=== PATIENT | female | born 1940 | race Caucasian/White ===

== ENCOUNTER 2016-08-27 18:26 | Emergency (ER) | payer MEDICARE ==
[~2016-08-27 18:26] MED LIST: AMIO200T42 PO; BREO INH; CALCIUM PEG; CHOL100011 PO; FISH OIL PO; FURO-93 PO; LEVO75TA5 PO; LEVO88TA2 PO; LOSA25TA5 PO; OMEP40CA6 PO; POTA20PA PO; RIVA20TA PO; SIMV20TA PO; SPIR25TA PO; SUCR1ORA2 PO; SUCR1TAB PO
[2016-08-27] MEDS ORDERED: MAALOX/HYOSCYAMINE/LIDOCAINE 45 ML BOTTLE PO ONE (19:00)
[2016-08-27] MEDS ORDERED: SODIUM CHLORIDE FLUSH 10ML SYR IVF ONE (19:00)
[2016-08-27 19:21] LABS: HEMOGLOBIN 15.1 g/dL (11.7-16.4)
[2016-08-27] MEDS ORDERED: MAALOX/HYOSCYAMINE/LIDOCAINE 45 ML BOTTLE ONE (19:22)
[2016-08-27 19:33] LABS: ASPARTATE AMINO TRANSFERASE 27 U/L (15-37); BLOOD UREA NITROGEN 14 mg/dL (7-18)
[2016-08-27 19:39] LABS: IS PT STATUS REG ER OR PRE ER? YES
[2016-08-27 21:40] VITALS: BP 138/61
== END 2016-08-27 21:46 | disposition home or self-care (01) ==
LOC: ED 21:30
DX: K21.9 Gastro-esophageal reflux disease without esophagitis (principal)
CPT/HCPCS: 36415; 71010; 80053; 83690; 84484; 85025; 93005

== ENCOUNTER → 2017-01-20 | Outpatient (CLI) | payer MEDICARE | END | disposition home or self-care (01) | LOC: CFH 12:08 | PROVIDERS: ATTEND Internal Medicine | DX: Z12.31 Encounter for screening mammogram for malignant neoplasm of breast (principal) | CPT/HCPCS: G0202 ==

== ENCOUNTER → 2017-07-20 | Outpatient (CLI) | payer MEDICARE, MEDICAID ==
[~2017-07-20] MED LIST changes: +ACET325T14 PO; +ASPI-621 PO; +MELA5TAB19 PO; +OMEG1CAP2 PO; +PRAS10TA4 PO; -SUCR1ORA2 PO; +SUCR1ORA5 PO; +SUCR1TAB33 PO; +calcium PO
== END | disposition home or self-care (01) ==
LOC: CFH 12:05
PROVIDERS: ATTEND Nurse Practitioner Primary Care
DX: M51.36 Other intervertebral disc degeneration, lumbar region (principal); M48.56XA Collapsed vertebra, not elsewhere classified, lumbar region, initial encounter for fracture
CPT/HCPCS: 72100

== ENCOUNTER → 2018-01-20 | Outpatient (CLI) | payer MEDICARE, MEDICAID | END | disposition home or self-care (01) | LOC: CFH 10:43 | PROVIDERS: ATTEND Nurse Practitioner Primary Care | DX: Z12.31 Encounter for screening mammogram for malignant neoplasm of breast (principal); M48.56XA Collapsed vertebra, not elsewhere classified, lumbar region, initial encounter for fracture; M85.88 Other specified disorders of bone density and structure, other site; E78.2 Mixed hyperlipidemia; J44.9 Chronic obstructive pulmonary disease, unspecified; K21.9 Gastro-esophageal reflux disease without esophagitis; I10 Essential (primary) hypertension | CPT/HCPCS: 72100; 77063; 77067 ==

== ENCOUNTER 2018-08-12 06:25 | Emergency (ER) | payer MEDICARE, MEDICAID ==
[~2018-08-12] VITALS: Ht 162.6 cm; Wt 83.0 kg
[~2018-08-12 06:25] MED LIST changes: +APIX5TAB PO; -ASPI-621 PO; +ASPI81TA45 PO; +LOSA25TA25 PO; -LOSA25TA5 PO; +METO-93 PO; -POTA20PA PO; +POTA20PA31 PO
[2018-08-12] MEDS ORDERED: MAALOX/HYOSCYAMINE/LIDOCAINE 45 ML BTL PO ONE (07:00)
--- NOTE | 2018-08-12 07:03 | NUR ---
PT IN HOSPITAL GOWN. PT PLACED ON CARDIAC AND VITALS MONITORS. LAB IN DRAWNING BLOOD AT THIS TIME. BEDSIDE REPORT GIVEN TO SULMA.
[2018-08-12 07:17] LABS: BASOPHILS # (AUTO) 0.02 x10^3/uL (0-0.1); BASOPHILS % (AUTO) 0 % (0-1); EOSINOPHILS # (AUTO) 0.01 x10^3/uL (0-0.4); EOSINOPHILS % (AUTO) 0 % (1-7); LYMPHOCYTES % (AUTO) 13 % (22-44); MD NO; MEAN CORPUSCULAR HEMOGLOBIN 32.4 pg (27.0-34.8); MEAN CORPUSCULAR HGB CONC 33.3 g/dL (32.4-35.8); MEAN CORPUSCULAR VOLUME 97.4 fL (80-100); MEAN PLATELET VOLUME 8.6 fL (7.4-10.4); MONOCYTES # (AUTO) 0.44 x10^3/uL (0.2-0.8); MONOCYTES % (AUTO) 8 % (2-9); NEUTROPHILS # (AUTO) 4.13 x10^3/uL (1.8-6.8); NEUTROPHILS % (AUTO) 78 % (42-75); PLATELET COUNT 302 x10^3/uL (130-400); RED BLOOD COUNT 3.93 x10^6/uL (3.82-5.3); RED CELL DISTRIBUTION WIDTH 13.8 % (9.6-15.2)
[2018-08-12] MEDS ORDERED: MAALOX/HYOSCYAMINE/LIDOCAINE 45 ML BTL ONE (07:21)
[2018-08-12 07:27] LABS: ALBUMIN 2.9 g/dL (3.4-5.0); ANION GAP 6 mmol/L (5-15); CALCIUM 8.4 mg/dL (8.5-10.1); CHLORIDE 109 mmol/L (98-107)
[2018-08-12 07:31] LABS: TROPONIN I < 0.015 ng/mL (0.000-0.045)
--- NOTE | 2018-08-12 07:56 | NUR ---
PT STATED THAT THE GI COCKTAIL MAY OF HELPED SLIGHTLY BUT SHE WASN'T FORSURE. STILL HAS BURNING.
[2018-08-12 08:13] VITALS: BP 105/32
== END 2018-08-12 08:35 | disposition home or self-care (01) ==
LOC: ED 08:04
DX: R07.2 Precordial pain (principal); K21.9 Gastro-esophageal reflux disease without esophagitis; J44.9 Chronic obstructive pulmonary disease, unspecified; E78.5 Hyperlipidemia, unspecified; I50.9 Heart failure, unspecified; I25.10 Atherosclerotic heart disease of native coronary artery without angina pectoris; I11.0 Hypertensive heart disease with heart failure
CPT/HCPCS: 36415; 71045; 80048; 82040; 84484; 85025; 93005; 99284

== ENCOUNTER 2018-11-08 19:09 | Inpatient (IN) | payer MEDICARE, MEDICAID ==
[~2018-11-08] VITALS: Ht 162.6 cm; Wt 78.0 kg
[2018-11-08] MEDS ORDERED: CITA10TA4 PO (19:32)
[2018-11-08] MEDS ORDERED: LOSA50TA14 PO (19:32)
[2018-11-08] MEDS ORDERED: OMEP20TA62 PO (19:32)
[2018-11-08] MEDS ORDERED: ALBU18HF INH (19:32)
[2018-11-08] MEDS ORDERED: FAMO-79 PO (19:32)
[2018-11-08] MEDS ORDERED: ATOR-2 PO (19:32)
[2018-11-08] MEDS ORDERED: UBID100C24 PO (19:32)
--- NOTE | 2018-11-08 19:34 | NUR ---
pt to ed for intermittent sob starting this afternoon. pt reports started exercising yesterday. sob started after gardening today. pt connected to monitors. vss. no needs expressed. edpa to bs for assessment. awaiting orders.
[2018-11-08] MEDS ORDERED: ALBUTEROL/IPRATROPIUM 2.5MG/0.5MG, 3 ML ONE (19:45)
[2018-11-08] MEDS ORDERED: ASPIRIN 81 MG TABLET CHEW PO ONE (20:00)
[2018-11-08] MEDS ORDERED: ALBUTEROL/IPRATROPIUM 2.5MG/0.5MG, 3 ML NPPB ONE (20:00)
[2018-11-08] MEDS ORDERED: ASPIRIN 81 MG TABLET CHEW ONE (20:08)
--- NOTE | 2018-11-08 20:14 | NUR ---
PT RESTING IN ROOM [facility] FAMILY AT BS. 2L NC PLACE FOR RA O2 SAT OF 83%. PT RECOVERED TO 93%. HX COPD. NO NEEDS EXPRESSED. CALL LIGHT WITHIN REACH. AWAITING RESULTS.
[2018-11-08 20:29] LABS: BASOPHILS # (AUTO) 0.03 x10^3/uL (0-0.1); BASOPHILS % (AUTO) 1 % (0-1); EOSINOPHILS # (AUTO) 0.05 x10^3/uL (0-0.4); EOSINOPHILS % (AUTO) 1 % (1-7); LYMPHOCYTES # (AUTO) 0.85 x10^3/uL (1-3.4); LYMPHOCYTES % (AUTO) 15 % (22-44); MD NO; MEAN CORPUSCULAR HEMOGLOBIN 32.5 pg (27.0-34.8); MEAN CORPUSCULAR HGB CONC 32.1 g/dL (32.4-35.8); MEAN CORPUSCULAR VOLUME 101.2 fL (80-100); MEAN PLATELET VOLUME 9.8 fL (7.4-10.4); MONOCYTES # (AUTO) 0.52 x10^3/uL (0.2-0.8); MONOCYTES % (AUTO) 9 % (2-9); NEUTROPHILS # (AUTO) 4.06 x10^3/uL (1.8-6.8); NEUTROPHILS % (AUTO) 74 % (42-75); PLATELET COUNT 220 x10^3/uL (130-400); RED BLOOD COUNT 4.28 x10^6/uL (3.82-5.3); RED CELL DISTRIBUTION WIDTH 14.5 % (9.6-15.2)
[2018-11-08 20:31] LABS: ALANINE AMINOTRANSFERASE 32 U/L (12-78); ALBUMIN 3.6 g/dL (3.4-5.0); ANION GAP 12 mmol/L (5-15); CALCIUM 8.4 mg/dL (8.5-10.1); CHLORIDE 109 mmol/L (98-107); CREATININE 0.92 mg/dL (0.55-1.02)
[2018-11-08 20:35] LABS: ALKALINE PHOSPHATASE 93 U/L (45-117); BILIRUBIN,TOTAL 1.1 mg/dL (0.2-1.0); TOTAL PROTEIN 6.3 g/dL (6.4-8.2); TROPONIN I < 0.015 ng/mL (0.000-0.045)
[2018-11-08] MEDS ORDERED: POTASSIUM CHLORIDE 20 MEQ TAB.ER.PRT PO ONE (21:00)
[2018-11-08] MEDS ORDERED: FUROSEMIDE 20 MG/2 ML IV ONE (21:00)
--- NOTE | 2018-11-08 21:14 | NUR ---
EDMD TO BS TO UPDATE ON POC. VSS.
[2018-11-08] MEDS ORDERED: POTASSIUM CHLORIDE 20 MEQ TAB.ER.PRT ONE (21:25)
[2018-11-08] MEDS ORDERED: FUROSEMIDE 20 MG/2 ML ONE (21:25)
--- NOTE | 2018-11-08 21:32 | NUR ---
IV ESTABLISHED AND PT MEDICATED PER MAR. VSS. NO NEEDS EXPRESSED. CALL LIGHT WITHIN REACH. AWAITING ROOM ASSIGNMENT.
[2018-11-08 22:32] VITALS: BP 169/101
[2018-11-09] MEDS ORDERED: ALBUTEROL SULFATE 2.5 MG/3 ML NPPB PRN (00:30)
[2018-11-09 02:03] VITALS: BP 149/75
[2018-11-09] MEDS: METOPROLOL SUCCINATE 50 MG TAB.ER.24H PO SCH (05:07)
[2018-11-09 05:51] LABS: ANION GAP 6 mmol/L (5-15); CALCIUM 8.4 mg/dL (8.5-10.1); CHLORIDE 108 mmol/L (98-107)
[2018-11-09 05:57] LABS: CREATININE 0.84 mg/dL (0.55-1.02); TROPONIN I 0.045 ng/mL (0.000-0.045)
[2018-11-09 05:58] LABS: BASOPHILS # (AUTO) 0.03 x10^3/uL (0-0.1); BASOPHILS % (AUTO) 0 % (0-1); EOSINOPHILS # (AUTO) 0.02 x10^3/uL (0-0.4); EOSINOPHILS % (AUTO) 0 % (1-7); LYMPHOCYTES # (AUTO) 0.84 x10^3/uL (1-3.4); LYMPHOCYTES % (AUTO) 11 % (22-44); MD NO; MEAN CORPUSCULAR HEMOGLOBIN 32.2 pg (27.0-34.8); MEAN CORPUSCULAR HGB CONC 32.3 g/dL (32.4-35.8); MEAN CORPUSCULAR VOLUME 99.7 fL (80-100); MEAN PLATELET VOLUME 9.6 fL (7.4-10.4); MONOCYTES # (AUTO) 0.74 x10^3/uL (0.2-0.8); MONOCYTES % (AUTO) 9 % (2-9); NEUTROPHILS # (AUTO) 6.29 x10^3/uL (1.8-6.8); NEUTROPHILS % (AUTO) 80 % (42-75); PLATELET COUNT 210 x10^3/uL (130-400); RED BLOOD COUNT 4.25 x10^6/uL (3.82-5.3); RED CELL DISTRIBUTION WIDTH 14.1 % (9.6-15.2)
[2018-11-09] MEDS: ALBUTEROL SULFATE 2.5 MG/3 ML NPPB SCH ×3 (07:07→20:36)
[2018-11-09 07:40] VITALS: BP 166/92
[2018-11-09] MEDS: LEVOTHYROXINE 75 MCG TABLET PO SCH (08:40)
[2018-11-09] MEDS: APIXABAN 5 MG TABLET PO SCH ×2 (08:40→21:40)
[2018-11-09] MEDS: ASPIRIN 81 MG TABLET EC PO SCH (08:40)
[2018-11-09] MEDS: CITALOPRAM 10 MG TABLET PO SCH (08:40)
[2018-11-09] MEDS: AMIODARONE 200 MG TABLET PO SCH ×2 (08:40→21:40)
[2018-11-09] MEDS ORDERED: FUROSEMIDE 20 MG TABLET PO SCH (09:00)
[2018-11-09] MEDS: BUDESONIDE 0.5 MG/2 ML INHA NPPB SCH ×2 (09:00→20:36)
[2018-11-09] MEDS: ACETAMINOPHEN 325 MG TABLET PO PRN (09:44)
[2018-11-09 13:00] VITALS: BP 164/92
[2018-11-09] MEDS ORDERED: hydrALAzine 20 MG/ML, 1ML IV PRN (18:00)
[2018-11-09 19:39] VITALS: BP 133/87
[2018-11-09] MEDS: LOSARTAN 50MG TABLET PO SCH (21:40)
[2018-11-09] MEDS: ATORVASTATIN 10 MG TABLET PO SCH (21:40)
[2018-11-10] MEDS ORDERED: DILTIAZEM 5 MG/ML, 5ML IVPush ONE ×2 (00:30→10:00)
[2018-11-10 01:31] VITALS: BP 112/76
[2018-11-10] MEDS: ALBUTEROL SULFATE 2.5 MG/3 ML NPPB SCH ×4 (03:12→19:58)
[2018-11-10] MEDS: DILTIAZEM 5 MG/ML, 5ML IVPush PRN (03:44)
[2018-11-10 05:58] LABS: ANION GAP 7 mmol/L (5-15); CALCIUM 8.5 mg/dL (8.5-10.1); CHLORIDE 107 mmol/L (98-107)
[2018-11-10] MEDS: METOPROLOL SUCCINATE 50 MG TAB.ER.24H PO SCH (06:06)
[2018-11-10 06:10] LABS: CREATININE 0.87 mg/dL (0.55-1.02)
[2018-11-10] MEDS: APIXABAN 5 MG TABLET PO SCH ×2 (08:45→20:33)
[2018-11-10] MEDS: CITALOPRAM 10 MG TABLET PO SCH (08:45)
[2018-11-10] MEDS: ASPIRIN 81 MG TABLET EC PO SCH (08:45)
[2018-11-10] MEDS: AMIODARONE 200 MG TABLET PO SCH ×2 (08:45→20:32)
[2018-11-10] MEDS: LEVOTHYROXINE 75 MCG TABLET PO SCH (08:45)
[2018-11-10] MEDS ORDERED: FUROSEMIDE 20 MG/2 ML IV SCH (09:00)
[2018-11-10] MEDS: BUDESONIDE 0.5 MG/2 ML INHA NPPB SCH ×2 (09:00→19:57)
[2018-11-10 09:55] VITALS: BP 100/59
[2018-11-10] MEDS ORDERED: MAGNESIUM SULFATE PMX 2GM/50ML 50 ML IV ONE (10:00)
[2018-11-10] MEDS ORDERED: POTASSIUM CHLORIDE 20 MEQ TAB.ER.PRT PO ONE (10:00)
[2018-11-10 10:05] VITALS: BP 100/59
[2018-11-10 13:30] VITALS: BP 100/60
[2018-11-10] MEDS: ACETAMINOPHEN 325 MG TABLET PO PRN (16:25)
[2018-11-10 20:10] VITALS: BP 102/68
[2018-11-10] MEDS: ATORVASTATIN 10 MG TABLET PO SCH (20:32)
[2018-11-10] MEDS: LOSARTAN 50MG TABLET PO SCH (20:33)
[2018-11-11] MEDS: DILTIAZEM 5 MG/ML, 5ML IVPush PRN ×2 (00:15→03:08)
[2018-11-11 01:24] VITALS: BP 117/83
[2018-11-11] MEDS: ALBUTEROL SULFATE 2.5 MG/3 ML NPPB SCH ×4 (02:56→20:17)
[2018-11-11 05:38] LABS: ANION GAP 7 mmol/L (5-15); CALCIUM 8.3 mg/dL (8.5-10.1); CHLORIDE 106 mmol/L (98-107)
[2018-11-11 05:42] LABS: CREATININE 0.87 mg/dL (0.55-1.02)
[2018-11-11] MEDS: METOPROLOL SUCCINATE 50 MG TAB.ER.24H PO SCH (06:31)
[2018-11-11 07:10] VITALS: BP 135/87
[2018-11-11] MEDS: CITALOPRAM 10 MG TABLET PO SCH (08:25)
[2018-11-11] MEDS: AMIODARONE 200 MG TABLET PO SCH ×2 (08:25→20:45)
[2018-11-11] MEDS: FUROSEMIDE 20 MG TABLET PO SCH (08:25)
[2018-11-11] MEDS: APIXABAN 5 MG TABLET PO SCH ×2 (08:25→20:45)
[2018-11-11] MEDS: ASPIRIN 81 MG TABLET EC PO SCH (08:25)
[2018-11-11] MEDS: LEVOTHYROXINE 75 MCG TABLET PO SCH (08:26)
[2018-11-11] MEDS ORDERED: AMIODARONE 50 MG/ML, 3ML IVPush ONE (09:00)
[2018-11-11] MEDS: BUDESONIDE 0.5 MG/2 ML INHA NPPB SCH (09:00)
[2018-11-11] MEDS ORDERED: DIGOXIN 0.25 MG/ML, 2ML IVPush ONE (09:00)
[2018-11-11] MEDS ORDERED: METOPROLOL SUCCINATE 50 MG TAB.ER.24H PO SCH (09:00)
[2018-11-11] MEDS ORDERED: AMIODARONE 150 MG in DEXTROSE 5% 100 ML IV ONE (10:00)
[2018-11-11] MEDS ORDERED: FILTER 0.22 MICRON FOR AMIODARONE IV PRN (10:00)
[2018-11-11 13:25] VITALS: BP 140/85
[2018-11-11] MEDS: LOSARTAN 50MG TABLET PO SCH (20:45)
[2018-11-11] MEDS: ATORVASTATIN 10 MG TABLET PO SCH (20:45)
[2018-11-11] MEDS ORDERED: BUDESONIDE 0.5 MG/2 ML INHA NPPB SCH (21:00)
[2018-11-11] MEDS: ACETAMINOPHEN 325 MG TABLET PO PRN (21:01)
[2018-11-11 21:29] VITALS: BP 113/75
[2018-11-12 02:15] VITALS: BP 129/86
[2018-11-12] MEDS: ALBUTEROL SULFATE 2.5 MG/3 ML NPPB SCH ×4 (03:00→21:00)
[2018-11-12 05:52] VITALS: BP 136/82
[2018-11-12] MEDS: METOPROLOL SUCCINATE 100 MG TAB.ER.24H PO SCH (05:58)
[2018-11-12] MEDS: BREO INH PRN (05:59)
[2018-11-12 07:18] VITALS: BP 118/84
[2018-11-12] MEDS: APIXABAN 5 MG TABLET PO SCH ×2 (08:42→20:17)
[2018-11-12] MEDS: CITALOPRAM 10 MG TABLET PO SCH (08:42)
[2018-11-12] MEDS: FUROSEMIDE 20 MG TABLET PO SCH (08:42)
[2018-11-12] MEDS: AMIODARONE 200 MG TABLET PO SCH ×2 (08:42→20:11)
[2018-11-12] MEDS: LEVOTHYROXINE 75 MCG TABLET PO SCH (08:43)
[2018-11-12] MEDS: ASPIRIN 81 MG TABLET EC PO SCH (08:43)
[2018-11-12] MEDS: ACETAMINOPHEN 325 MG TABLET PO PRN (08:47)
[2018-11-12] MEDS: BUDESONIDE 0.5 MG/2 ML INHA INH SCH ×2 (09:55→21:00)
[2018-11-12] MEDS ORDERED: BISACODYL 10 MG SUPP PR PRN (12:00)
[2018-11-12] MEDS ORDERED: BISACODYL 5 MG EC TABLET PO PRN (12:00)
[2018-11-12] MEDS ORDERED: DOCUSATE 100 MG CAPSULE ONE (12:55)
[2018-11-12] MEDS: DOCUSATE 100 MG CAPSULE PO SCH (12:58)
[2018-11-12 15:50] VITALS: BP 100/68
[2018-11-12] MEDS ORDERED: FURO20TA3 PO (17:53)
[2018-11-12] MEDS ORDERED: POTA10TA5 PO (17:53)
[2018-11-12 19:15] VITALS: BP 93/62
[2018-11-12] MEDS: LOSARTAN 50MG TABLET PO SCH (20:11)
[2018-11-12] MEDS: ATORVASTATIN 10 MG TABLET PO SCH (20:17)
[2018-11-13 01:15] VITALS: BP 126/77
[2018-11-13] MEDS: ALBUTEROL SULFATE 2.5 MG/3 ML NPPB SCH ×2 (03:00→07:10)
[2018-11-13] MEDS: METOPROLOL SUCCINATE 100 MG TAB.ER.24H PO SCH (05:49)
[2018-11-13] MEDS: BUDESONIDE 0.5 MG/2 ML INHA INH SCH (07:10)
[2018-11-13 08:55] VITALS: BP 135/73
[2018-11-13] MEDS: DOCUSATE 100 MG CAPSULE PO SCH ×2 (09:00→21:05)
[2018-11-13] MEDS: APIXABAN 5 MG TABLET PO SCH ×2 (09:07→20:58)
[2018-11-13] MEDS: ASPIRIN 81 MG TABLET EC PO SCH (09:07)
[2018-11-13] MEDS: FUROSEMIDE 20 MG TABLET PO SCH (09:08)
[2018-11-13] MEDS: CITALOPRAM 10 MG TABLET PO SCH (09:08)
[2018-11-13] MEDS: POTASSIUM CHLORIDE 10 MEQ TABLET.ER PO SCH (09:08)
[2018-11-13] MEDS: AMIODARONE 200 MG TABLET PO SCH ×2 (09:08→20:58)
[2018-11-13] MEDS: LEVOTHYROXINE 75 MCG TABLET PO SCH (09:14)
[2018-11-13] MEDS ORDERED: ALBUTEROL SULFATE 2.5 MG/3 ML NPPB PRN (11:00)
[2018-11-13 14:10] VITALS: BP 111/71
[2018-11-13 20:47] VITALS: BP 161/86
[2018-11-13] MEDS: ATORVASTATIN 10 MG TABLET PO SCH (20:58)
[2018-11-13] MEDS: LOSARTAN 50MG TABLET PO SCH (20:59)
[2018-11-14 03:36] VITALS: BP 116/61
[2018-11-14] MEDS: METOPROLOL SUCCINATE 50 MG TAB.ER.24H PO SCH (05:55)
[2018-11-14] MEDS: BREO INH PRN (05:56)
[2018-11-14 06:03] LABS: ANION GAP 5 mmol/L (5-15); CALCIUM 8.4 mg/dL (8.5-10.1); CHLORIDE 109 mmol/L (98-107); CREATININE 0.79 mg/dL (0.55-1.02)
[2018-11-14] MEDS: POTASSIUM CHLORIDE 10 MEQ TABLET.ER PO SCH (07:50)
[2018-11-14] MEDS: CITALOPRAM 10 MG TABLET PO SCH (07:51)
[2018-11-14] MEDS: FUROSEMIDE 20 MG TABLET PO SCH (07:52)
[2018-11-14] MEDS: AMIODARONE 200 MG TABLET PO SCH ×2 (07:53→21:45)
[2018-11-14] MEDS: LEVOTHYROXINE 75 MCG TABLET PO SCH (07:53)
[2018-11-14] MEDS: APIXABAN 5 MG TABLET PO SCH ×2 (07:54→21:45)
[2018-11-14] MEDS: ASPIRIN 81 MG TABLET EC PO SCH (07:54)
[2018-11-14] MEDS: DOCUSATE 100 MG CAPSULE PO SCH ×2 (07:55→21:44)
[2018-11-14 08:39] VITALS: BP 135/72
[2018-11-14 12:50] VITALS: BP 133/84
[2018-11-14 19:56] VITALS: BP 135/84
[2018-11-14] MEDS: LOSARTAN 50MG TABLET PO SCH (21:45)
[2018-11-14] MEDS: ATORVASTATIN 10 MG TABLET PO SCH (21:45)
[2018-11-15 01:35] VITALS: BP 148/79
[2018-11-15] MEDS: METOPROLOL SUCCINATE 50 MG TAB.ER.24H PO SCH (06:18)
[2018-11-15] MEDS: BREO INH PRN (06:18)
[2018-11-15 07:33] VITALS: BP 132/79
[2018-11-15] MEDS: LEVOTHYROXINE 75 MCG TABLET PO SCH (08:02)
[2018-11-15] MEDS: APIXABAN 5 MG TABLET PO SCH ×2 (08:02→22:17)
[2018-11-15] MEDS: AMIODARONE 200 MG TABLET PO SCH ×2 (08:02→22:16)
[2018-11-15] MEDS: FUROSEMIDE 20 MG TABLET PO SCH (08:02)
[2018-11-15] MEDS: ASPIRIN 81 MG TABLET EC PO SCH (08:02)
[2018-11-15] MEDS: POTASSIUM CHLORIDE 10 MEQ TABLET.ER PO SCH (08:02)
[2018-11-15] MEDS: CITALOPRAM 10 MG TABLET PO SCH (08:03)
[2018-11-15] MEDS: DOCUSATE 100 MG CAPSULE PO SCH ×2 (08:03→22:14)
[2018-11-15 12:23] VITALS: BP 121/71
[2018-11-15 18:55] VITALS: BP 102/63
[2018-11-15 22:12] VITALS: BP 125/73
[2018-11-15] MEDS: ATORVASTATIN 10 MG TABLET PO SCH (22:17)
[2018-11-15] MEDS: LOSARTAN 50MG TABLET PO SCH (22:17)
[2018-11-16 00:48] VITALS: BP 120/55
[2018-11-16 07:29] VITALS: BP 130/78
[2018-11-16] MEDS: POTASSIUM CHLORIDE 10 MEQ TABLET.ER PO SCH (08:42)
[2018-11-16] MEDS: LEVOTHYROXINE 75 MCG TABLET PO SCH (08:42)
[2018-11-16] MEDS: ASPIRIN 81 MG TABLET EC PO SCH (08:42)
[2018-11-16] MEDS: APIXABAN 5 MG TABLET PO SCH (08:42)
[2018-11-16] MEDS: CITALOPRAM 10 MG TABLET PO SCH (08:42)
[2018-11-16] MEDS: AMIODARONE 200 MG TABLET PO SCH (08:42)
[2018-11-16] MEDS: FUROSEMIDE 20 MG TABLET PO SCH (08:42)
[2018-11-16] MEDS: DOCUSATE 100 MG CAPSULE PO SCH (08:43)
[2018-11-16] MEDS: METOPROLOL SUCCINATE 50 MG TAB.ER.24H PO SCH (08:46)
[2018-11-16] MEDS: BREO INH PRN (08:47)
== END 2018-11-16 13:04 | DRG 291 ==
LOC: ED 20:41 → EDIP 21:21 → 5SO 22:10
PROVIDERS: ADMIT Internal Medicine; ATTEND Internal Medicine
PROC: 5A09357 Assistance with Respiratory Ventilation, Less than 24 Consecutive Hours, Continuous Positive Airway Pressure (ICD-10-PCS; principal; 2018-11-11)
PROC: 5A09357 Assistance with Respiratory Ventilation, Less than 24 Consecutive Hours, Continuous Positive Airway Pressure (ICD-10-PCS; 2018-11-12)
PROC: 5A09357 Assistance with Respiratory Ventilation, Less than 24 Consecutive Hours, Continuous Positive Airway Pressure (ICD-10-PCS; 2018-11-13)
PROC: 5A09357 Assistance with Respiratory Ventilation, Less than 24 Consecutive Hours, Continuous Positive Airway Pressure (ICD-10-PCS; 2018-11-14)
DX: I11.0 Hypertensive heart disease with heart failure (principal); J96.21 Acute and chronic respiratory failure with hypoxia; D68.69 Other thrombophilia; I50.43 Acute on chronic combined systolic (congestive) and diastolic (congestive) heart failure; I48.0 Paroxysmal atrial fibrillation; E03.9 Hypothyroidism, unspecified; E78.5 Hyperlipidemia, unspecified; E87.6 Hypokalemia; G47.33 Obstructive sleep apnea (adult) (pediatric); I08.1 Rheumatic disorders of both mitral and tricuspid valves; I25.10 Atherosclerotic heart disease of native coronary artery without angina pectoris; I45.10 Unspecified right bundle-branch block; J44.9 Chronic obstructive pulmonary disease, unspecified; K21.9 Gastro-esophageal reflux disease without esophagitis; Z79.01 Long term (current) use of anticoagulants; Z79.82 Long term (current) use of aspirin; Z82.49 Family history of ischemic heart disease and other diseases of the circulatory system; Z86.718 Personal history of other venous thrombosis and embolism; Z87.891 Personal history of nicotine dependence; Z95.5 Presence of coronary angioplasty implant and graft
CPT/HCPCS: 36415; 71045; 80048; 80053; 83735; 83880; 84100; 84443; 84484; 85025; 93005; 94640; 94660; C8929; G0378; J7613; J7620; J7626; Q9957; J0282; J1160; J1940; J3475

== ENCOUNTER 2018-12-22 07:56 | Outpatient (CLI) | payer MEDICARE, MEDICAID ==
[~2018-12-22 07:56] MED LIST changes: +ALBU18HF INH; +ATOR-2 PO; +CITA10TA4 PO; +FAMO-79 PO; +FURO20TA3 PO; +LOSA50TA14 PO; +OMEP20TA62 PO; +POTA10TA5 PO; +REGADENOSON 0.4 MG/5 ML SYRINGE ONE; +UBID100C24 PO
== END 2018-12-22 23:59 | disposition home or self-care (01) ==
LOC: CFH 07:56
PROVIDERS: ATTEND Internal Medicine Cardiovascular Disease
DX: I21.09 ST elevation (STEMI) myocardial infarction involving other coronary artery of anterior wall (principal); I21.19 ST elevation (STEMI) myocardial infarction involving other coronary artery of inferior wall; I21.29 ST elevation (STEMI) myocardial infarction involving other sites; I11.0 Hypertensive heart disease with heart failure; I50.9 Heart failure, unspecified
CPT/HCPCS: 78452; 93017; A9502; J2785

== ENCOUNTER 2019-01-18 09:33 | Inpatient (IN) | payer MEDICAID, MEDICARE ==
[~2019-01-18] VITALS: Ht 162.6 cm; Wt 82.7 kg
[2019-01-20 13:22] VITALS: BP 101/64
== END 2019-01-20 16:15 | disposition home or self-care (01) | DRG 391 ==
LOC: ED 10:34 → EDIP 11:39 → 5SO 12:12 → DCLOUNGE 01-20 16:15
PROVIDERS: ADMIT Internal Medicine; ATTEND Internal Medicine
PROC: 4A023N7 Measurement of Cardiac Sampling and Pressure, Left Heart, Percutaneous Approach (ICD-10-PCS; principal; 2019-01-19)
PROC: B2111ZZ Fluoroscopy of Multiple Coronary Arteries using Low Osmolar Contrast (ICD-10-PCS; 2019-01-19)
PROC: B2151ZZ Fluoroscopy of Left Heart using Low Osmolar Contrast (ICD-10-PCS; 2019-01-19)
DX: K21.9 Gastro-esophageal reflux disease without esophagitis (principal); I50.23 Acute on chronic systolic (congestive) heart failure; D68.59 Other primary thrombophilia; I42.9 Cardiomyopathy, unspecified; I25.110 Atherosclerotic heart disease of native coronary artery with unstable angina pectoris; I11.0 Hypertensive heart disease with heart failure; Z91.048 Other nonmedicinal substance allergy status; E03.9 Hypothyroidism, unspecified; E78.5 Hyperlipidemia, unspecified; I25.2 Old myocardial infarction; I27.20 Pulmonary hypertension, unspecified; I48.0 Paroxysmal atrial fibrillation; J44.9 Chronic obstructive pulmonary disease, unspecified; Z79.01 Long term (current) use of anticoagulants; Z79.82 Long term (current) use of aspirin; Z80.8 Family history of malignant neoplasm of other organs or systems; Z87.891 Personal history of nicotine dependence; Z95.5 Presence of coronary angioplasty implant and graft; Z82.49 Family history of ischemic heart disease and other diseases of the circulatory system; I08.1 Rheumatic disorders of both mitral and tricuspid valves; E86.0 Dehydration
CPT/HCPCS: 36415; 71045; 80048; 80053; 84443; 84484; 85025; 93005; 93458; 99156; 99285; C1769; C1894; G0378; J0583; J1644; J2250; J3010; Q9967

== ENCOUNTER 2019-04-20 11:35 | Emergency (ER) | payer MEDICARE, MEDICAID ==
[~2019-04-20] VITALS: Ht 162.6 cm; Wt 83.0 kg
[~2019-04-20 11:35] MED LIST changes: +MELA5TAB14 PO; -MELA5TAB19 PO; +METO25TA91 PO; +OMEP40CA42 PO; -OMEP40CA6 PO; -REGADENOSON 0.4 MG/5 ML SYRINGE ONE; +SPIR25TA5 PO
[2019-04-20 11:43] VITALS: BP 140/29
--- NOTE | 2019-04-20 12:47 | NUR ---
PT TO CT
--- NOTE | 2019-04-20 14:59 | NUR ---
Patient given discharge instructions and they have confirmed that they understand the instructions. Patient ambulatory with steady gait.
== END 2019-04-20 15:03 | disposition home or self-care (01) ==
LOC: ED 14:50
DX: M25.551 Pain in right hip (principal); J44.9 Chronic obstructive pulmonary disease, unspecified; I25.10 Atherosclerotic heart disease of native coronary artery without angina pectoris; I11.0 Hypertensive heart disease with heart failure; I50.9 Heart failure, unspecified; E03.9 Hypothyroidism, unspecified; K21.9 Gastro-esophageal reflux disease without esophagitis; E78.5 Hyperlipidemia, unspecified; Z90.89 Acquired absence of other organs
CPT/HCPCS: 72110; 72192; 99284

== ENCOUNTER → 2019-07-25 | Outpatient (CLI) | payer MEDICARE, MEDICAID | END | disposition home or self-care (01) | LOC: CFH 12:08 | PROVIDERS: ATTEND Nurse Practitioner Primary Care | DX: Z12.31 Encounter for screening mammogram for malignant neoplasm of breast (principal) | CPT/HCPCS: 77063; 77067 ==

== ENCOUNTER → 2020-01-15 | Outpatient (CLI) | payer MEDICARE, MEDICAID | END | disposition home or self-care (01) | LOC: CFH 12:51 | PROVIDERS: ATTEND Internal Medicine Cardiovascular Disease | DX: I35.8 Other nonrheumatic aortic valve disorders (principal); E78.5 Hyperlipidemia, unspecified; I10 Essential (primary) hypertension | CPT/HCPCS: 93306 ==

== ENCOUNTER → 2020-07-05 | Outpatient (CLI) | payer MEDICARE, MEDICAID ==
[~2020-07-05] MED LIST changes: +REGADENOSON 0.4 MG/5 ML SYRINGE ONE
== END | disposition home or self-care (01) ==
LOC: CFH 12:26
PROVIDERS: ATTEND Internal Medicine Cardiovascular Disease
DX: Z01.810 Encounter for preprocedural cardiovascular examination (principal)
CPT/HCPCS: 78452; 93017; A9502; J2785

== ENCOUNTER → 2020-07-18 | Outpatient (CLI) | payer MEDICARE, MEDICAID ==
[~2020-07-18] MED LIST changes: +AMIO100T4 PO; +ATOR10TA9 PO; +FLUT1AER INH; +METO25TA35 PO; +OMEG-14 PO; +POTA20TA89 PO; -REGADENOSON 0.4 MG/5 ML SYRINGE ONE
[2020-07-18 16:59] LABS: BASOPHILS % (AUTO) 1 % (0-1); EOSINOPHILS % (AUTO) 1 % (1-7); LYMPHOCYTES % (AUTO) 17 % (22-44); MEAN CORPUSCULAR HEMOGLOBIN 33.3 pg (27.0-34.8); MEAN CORPUSCULAR HGB CONC 33.7 g/dL (32.4-35.8); MEAN PLATELET VOLUME 8.8 fL (7.4-10.4); MONOCYTES % (AUTO) 13 % (2-9); NEUTROPHILS % (AUTO) 69 % (42-75); PLATELET COUNT 276 x10^3/uL (130-400); RED CELL DISTRIBUTION WIDTH 13.4 % (9.6-15.2)
[2020-07-18 17:00] LABS: MD NO
[2020-07-18 17:09] LABS: INTERNATIONAL NORMALIZED RATIO 1.03 (0.93-1.1)
[2020-07-18 17:10] LABS: ALANINE AMINOTRANSFERASE 18 U/L (12-78); ALBUMIN 3.9 g/dL (3.4-5.0); ANION GAP 6 mmol/L (5-15); CHLORIDE 109 mmol/L (98-107)
[2020-07-18 17:12] LABS: ALKALINE PHOSPHATASE 90 U/L (45-117); BILIRUBIN,TOTAL 0.7 mg/dL (0.2-1.0); TOTAL PROTEIN 7.1 g/dL (6.4-8.2)
== END | disposition home or self-care (01) ==
LOC: STAR 15:44
PROVIDERS: ATTEND Orthopaedic Surgery
DX: Z01.810 Encounter for preprocedural cardiovascular examination (principal); Z01.818 Encounter for other preprocedural examination; M16.12 Unilateral primary osteoarthritis, left hip; M25.552 Pain in left hip; I49.3 Ventricular premature depolarization; I45.10 Unspecified right bundle-branch block; Z79.01 Long term (current) use of anticoagulants; Z20.822 Contact with and (suspected) exposure to COVID-19
CPT/HCPCS: 80053; 83036; 85025; 85610; 85730; 87081; 87635; 93005

== ENCOUNTER 2020-07-30 05:49 | Observation (INO) | payer MEDICARE, MEDICAID ==
[~2020-07-30] VITALS: Ht 162.6 cm; Wt 85.5 kg
--- NOTE | 2020-07-30 06:08 | NUR ---
Patient BIBA c/o L hip pain. Patient had hip surg last Wednesday. She has been attempting to ambulate but has had pain. She has been taking oxycodone with no relief. [facility] admin Fentanyl and Zofran. Patient now has no pain. Patient in NAD. Respirations even and unlabored.
[2020-07-30 06:48] LABS: BASOPHILS % (AUTO) 1 % (0-1); EOSINOPHILS % (AUTO) 2 % (1-7); LYMPHOCYTES % (AUTO) 8 % (22-44); MEAN CORPUSCULAR HGB CONC 34.4 g/dL (32.4-35.8); MEAN PLATELET VOLUME 8.2 fL (7.4-10.4); MONOCYTES % (AUTO) 14 % (2-9); NEUTROPHILS % (AUTO) 76 % (42-75); PLATELET COUNT 302 x10^3/uL (130-400); RED BLOOD COUNT 3.92 x10^6/uL (3.82-5.3)
--- NOTE | 2020-07-30 06:55 | NUR ---
Report to BELKYS Christina. Patient care transferred.
[2020-07-30 06:59] LABS: ANION GAP 5 mmol/L (5-15); CALCIUM 8.6 mg/dL (8.5-10.1); CHLORIDE 102 mmol/L (98-107); CREATININE 0.89 mg/dL (0.55-1.02)
[2020-07-30] MEDS ORDERED: BISACODYL 10 MG SUPP PR ONE (07:00)
[2020-07-30 07:21] LABS: MD SCAN
[2020-07-30] MEDS ORDERED: BISACODYL 10 MG SUPP ONE (07:38)
--- NOTE | 2020-07-30 07:58 | NUR ---
Pt repositioned to comfort. Pt to imaging now.
--- NOTE | 2020-07-30 10:15 | NUR ---
Pt is A&Ox4 but has word salad speech "because of the pain meds, this happens to her, we're [her family] not worried about it.
[2020-07-30] MEDS ORDERED: SPIRONOLACTONE 25 MG TABLET PO SCH ×2 (10:30→15:30)
[2020-07-30] MEDS ORDERED: TRAZODONE 50MG TABLET PO PRN ×2 (10:30→21:00)
[2020-07-30] MEDS ORDERED: FUROSEMIDE 20 MG TABLET PO SCH ×2 (10:30→15:30)
[2020-07-30] MEDS ORDERED: AMIODARONE 200 MG TABLET PO SCH ×2 (10:30→15:30)
[2020-07-30] MEDS ORDERED: OXYcodone IR 5MG TABLET PO PRN ×2 (10:30→16:30)
[2020-07-30] MEDS ORDERED: METOPROLOL TARTRATE 25 MG TAB PO SCH ×2 (10:30→15:30)
[2020-07-30] MEDS ORDERED: SENNA/DOCUSATE TABLET PO SCH ×2 (10:30→15:30)
[2020-07-30] MEDS ORDERED: OxyconTIN ER 10 MG TAB.ER PO SCH ×2 (10:30→15:30)
[2020-07-30] MEDS ORDERED: POLYETHYLENE GLYCOL 17 GM PACKET PO SCH (10:30)
[2020-07-30] MEDS ORDERED: ACETAMINOPHEN 500 MG TABLET PO SCH ×2 (10:30→15:30)
[2020-07-30] MEDS ORDERED: CITALOPRAM 10 MG TABLET PO SCH ×2 (10:30→15:30)
[2020-07-30] MEDS ORDERED: APIXABAN 5 MG TABLET PO SCH ×2 (10:30→15:30)
[2020-07-30] MEDS ORDERED: FLUTICASONE/VILANTEROL 100-25MCG/INH INH SCH ×2 (10:30→15:30)
[2020-07-30] MEDS ORDERED: FAMOTIDINE 20 MG TABLET PO SCH ×2 (10:30→15:30)
[2020-07-30 10:50] VITALS: BP 100/69
[2020-07-30] MEDS ORDERED: ALBUTEROL HFA 90 MCG/SPRAY INH SCH ×2 (11:00→15:30)
[2020-07-30 11:19] VITALS: BP 100/69
[2020-07-30 12:50] VITALS: BP 128/76
[2020-07-30 14:11] VITALS: BP 115/75
[2020-07-30] MEDS: METOCLOPRAMIDE 5 MG/ML, 2ML IVPush SCH ×3 (14:38→21:01)
[2020-07-30] MEDS: GABAPENTIN 100 MG CAPSULE PO SCH (14:39)
[2020-07-30] MEDS: POLYETHYLENE GLYCOL 17 GM PACKET PO SCH ×2 (16:30→21:00)
[2020-07-30] MEDS ORDERED: ALBUTEROL HFA 90 MCG/SPRAY INH PRN (16:30)
[2020-07-30] MEDS: FLUTICASONE/VILANTEROL 100-25MCG/INH INH SCH (16:30)
[2020-07-30] MEDS: METOPROLOL TARTRATE 25 MG TAB PO SCH (17:36)
[2020-07-30] MEDS: FUROSEMIDE 20 MG TABLET PO SCH (17:36)
[2020-07-30] MEDS: SPIRONOLACTONE 25 MG TABLET PO SCH (17:36)
[2020-07-30] MEDS: SENNA/DOCUSATE TABLET PO SCH (17:37)
[2020-07-30] MEDS: AMIODARONE 200 MG TABLET PO SCH (17:37)
[2020-07-30] MEDS: ACETAMINOPHEN 500 MG TABLET PO SCH (17:37)
[2020-07-30] MEDS: OxyconTIN ER 10 MG TAB.ER PO SCH (17:37)
[2020-07-30 19:38] VITALS: BP 137/74
[2020-07-30 20:57] VITALS: BP 89/56
[2020-07-30] MEDS: FAMOTIDINE 10 MG TAB PO SCH (21:00)
[2020-07-30] MEDS: ATORVASTATIN 10 MG TABLET PO SCH (21:00)
[2020-07-30] MEDS ORDERED: ATORVASTATIN 10 MG TABLET PO SCH (21:00)
[2020-07-30] MEDS: LOSARTAN 25MG TABLET PO SCH (21:00)
[2020-07-30] MEDS: APIXABAN 5 MG TABLET PO SCH (21:01)
[2020-07-31 01:48] VITALS: BP_SYST 110; BP_DIAS 33; BP_DIAS 55
[2020-07-31] MEDS: GABAPENTIN 100 MG CAPSULE PO SCH ×4 (04:00→20:39)
[2020-07-31] MEDS: METOCLOPRAMIDE 5 MG/ML, 2ML IVPush SCH ×3 (04:30→13:13)
[2020-07-31 04:56] LABS: BASOPHILS % (AUTO) 0 % (0-1); EOSINOPHILS % (AUTO) 2 % (1-7); LYMPHOCYTES % (AUTO) 7 % (22-44); MEAN CORPUSCULAR HEMOGLOBIN 33.1 pg (27.0-34.8); MEAN CORPUSCULAR HGB CONC 33.3 g/dL (32.4-35.8); MEAN PLATELET VOLUME 8.3 fL (7.4-10.4); MONOCYTES % (AUTO) 13 % (2-9); NEUTROPHILS % (AUTO) 79 % (42-75); PLATELET COUNT 290 x10^3/uL (130-400); RED BLOOD COUNT 3.93 x10^6/uL (3.82-5.3); RED CELL DISTRIBUTION WIDTH 13.3 % (9.6-15.2)
[2020-07-31 04:57] LABS: MD NO
[2020-07-31 05:08] LABS: ANION GAP 4 mmol/L (5-15); CALCIUM 8.7 mg/dL (8.5-10.1); CHLORIDE 105 mmol/L (98-107)
[2020-07-31 05:22] VITALS: BP 110/65
[2020-07-31] MEDS: FLUTICASONE/VILANTEROL 100-25MCG/INH INH SCH (05:24)
[2020-07-31] MEDS: ASPIRIN 81 MG TABLET EC PO SCH (05:25)
[2020-07-31] MEDS: LEVOTHYROXINE 75 MCG TABLET PO SCH (05:25)
[2020-07-31] MEDS: ACETAMINOPHEN 500 MG TABLET PO SCH ×3 (05:25→20:40)
[2020-07-31] MEDS: OxyconTIN ER 10 MG TAB.ER PO SCH ×2 (05:26→17:59)
[2020-07-31] MEDS: METOPROLOL TARTRATE 25 MG TAB PO SCH ×2 (05:26→17:59)
[2020-07-31 07:05] VITALS: BP 94/55
[2020-07-31] MEDS: AMIODARONE 200 MG TABLET PO SCH (08:33)
[2020-07-31] MEDS: SENNA/DOCUSATE TABLET PO SCH (08:33)
[2020-07-31] MEDS: CITALOPRAM 10 MG TABLET PO SCH (08:33)
[2020-07-31] MEDS: APIXABAN 5 MG TABLET PO SCH ×2 (08:34→20:40)
[2020-07-31] MEDS: SPIRONOLACTONE 25 MG TABLET PO SCH (08:34)
[2020-07-31] MEDS: POTASSIUM CHLORIDE 20 MEQ TAB.ER.PRT PO SCH (08:34)
[2020-07-31] MEDS: POLYETHYLENE GLYCOL 17 GM PACKET PO SCH ×2 (08:34→13:13)
[2020-07-31] MEDS: FUROSEMIDE 20 MG TABLET PO SCH (08:38)
[2020-07-31 08:40] VITALS: BP 94/59
[2020-07-31 15:53] VITALS: BP 108/73
[2020-07-31 19:33] VITALS: BP 131/74
[2020-07-31] MEDS: FAMOTIDINE 10 MG TAB PO SCH (20:39)
[2020-07-31] MEDS: ATORVASTATIN 10 MG TABLET PO SCH (20:40)
[2020-07-31] MEDS: LOSARTAN 25MG TABLET PO SCH (20:40)
[2020-08-01 01:26] VITALS: BP 104/54
[2020-08-01] MEDS: METOPROLOL TARTRATE 25 MG TAB PO SCH ×2 (06:13→17:35)
[2020-08-01] MEDS: ACETAMINOPHEN 500 MG TABLET PO SCH ×3 (06:13→21:33)
[2020-08-01] MEDS: OxyconTIN ER 10 MG TAB.ER PO SCH ×2 (06:14→17:35)
[2020-08-01] MEDS: LEVOTHYROXINE 75 MCG TABLET PO SCH (06:14)
[2020-08-01] MEDS: ASPIRIN 81 MG TABLET EC PO SCH (06:14)
[2020-08-01] MEDS: GABAPENTIN 100 MG CAPSULE PO SCH ×3 (06:14→21:33)
[2020-08-01 06:39] VITALS: BP 116/56
[2020-08-01] MEDS: FLUTICASONE/VILANTEROL 100-25MCG/INH INH SCH (07:41)
[2020-08-01] MEDS: POTASSIUM CHLORIDE 20 MEQ TAB.ER.PRT PO SCH (10:01)
[2020-08-01] MEDS: FUROSEMIDE 20 MG TABLET PO SCH (10:02)
[2020-08-01] MEDS: CITALOPRAM 10 MG TABLET PO SCH (10:02)
[2020-08-01] MEDS: AMIODARONE 200 MG TABLET PO SCH (10:02)
[2020-08-01] MEDS: SPIRONOLACTONE 25 MG TABLET PO SCH (10:02)
[2020-08-01] MEDS: APIXABAN 5 MG TABLET PO SCH ×2 (10:03→21:33)
[2020-08-01] MEDS: SENNA/DOCUSATE TABLET PO SCH (10:03)
[2020-08-01] MEDS ORDERED: METHOCARBAMOL 500 MG TABLET PO PRN (11:00)
[2020-08-01] MEDS ORDERED: OXYcodone IR 5MG TABLET PO PRN (12:30)
[2020-08-01 12:35] VITALS: BP 108/69
[2020-08-01] MEDS: LIDODERM 5% PATCH TD SCH (13:17)
[2020-08-01 20:01] VITALS: BP 95/59
[2020-08-01] MEDS: FAMOTIDINE 10 MG TAB PO SCH (21:32)
[2020-08-01] MEDS: ATORVASTATIN 10 MG TABLET PO SCH (21:32)
[2020-08-01] MEDS: LOSARTAN 25MG TABLET PO SCH (21:33)
[2020-08-02 01:53] VITALS: BP 116/58
[2020-08-02 06:13] VITALS: BP 126/51
[2020-08-02] MEDS: ASPIRIN 81 MG TABLET EC PO SCH (06:15)
[2020-08-02] MEDS: GABAPENTIN 100 MG CAPSULE PO SCH ×2 (06:15→12:34)
[2020-08-02] MEDS: ACETAMINOPHEN 500 MG TABLET PO SCH ×2 (06:15→14:31)
[2020-08-02] MEDS: METOPROLOL TARTRATE 25 MG TAB PO SCH (06:15)
[2020-08-02] MEDS: LEVOTHYROXINE 75 MCG TABLET PO SCH (06:15)
[2020-08-02] MEDS: OxyconTIN ER 10 MG TAB.ER PO SCH (06:16)
[2020-08-02] MEDS: FLUTICASONE/VILANTEROL 100-25MCG/INH INH SCH ×2 (08:47→09:00)
[2020-08-02] MEDS: SENNA/DOCUSATE TABLET PO SCH (08:48)
[2020-08-02] MEDS: APIXABAN 5 MG TABLET PO SCH (08:49)
[2020-08-02] MEDS: FUROSEMIDE 20 MG TABLET PO SCH (08:49)
[2020-08-02] MEDS: POTASSIUM CHLORIDE 20 MEQ TAB.ER.PRT PO SCH (08:50)
[2020-08-02] MEDS: CITALOPRAM 10 MG TABLET PO SCH (08:50)
[2020-08-02] MEDS: SPIRONOLACTONE 25 MG TABLET PO SCH (08:50)
[2020-08-02] MEDS: AMIODARONE 200 MG TABLET PO SCH (08:51)
[2020-08-02] MEDS: LIDODERM 5% PATCH TD SCH (11:00)
[2020-08-02] MEDS ORDERED: GABA-826 PO (11:14)
[2020-08-02] MEDS ORDERED: OXYC5TAB98 PO (11:14)
[2020-08-02] MEDS ORDERED: ACET-1600 PO (11:14)
[2020-08-02] MEDS ORDERED: METH-639 PO (11:14)
[2020-08-02] MEDS ORDERED: SENN-211 PO (11:14)
[2020-08-02 13:26] VITALS: BP 130/75
== END 2020-08-02 14:56 ==
LOC: ED 09:25 → EDIP 10:04 → 4NE 10:54 → 3N 07-31 14:58 → OBSVTOIN 07-31 15:22 → INTOOBSV 07-31 15:22
PROVIDERS: ADMIT Internal Medicine; ATTEND Internal Medicine
DX: G89.18 Other acute postprocedural pain (principal); M25.552 Pain in left hip; K59.03 Drug induced constipation; R11.0 Nausea; I48.20 Chronic atrial fibrillation, unspecified; E03.9 Hypothyroidism, unspecified; I11.0 Hypertensive heart disease with heart failure; I50.22 Chronic systolic (congestive) heart failure; I25.110 Atherosclerotic heart disease of native coronary artery with unstable angina pectoris; I45.89 Other specified conduction disorders; G47.33 Obstructive sleep apnea (adult) (pediatric); F32.9 Major depressive disorder, single episode, unspecified; E78.5 Hyperlipidemia, unspecified; J44.9 Chronic obstructive pulmonary disease, unspecified; K21.9 Gastro-esophageal reflux disease without esophagitis; T40.2X5A Adverse effect of other opioids, initial encounter; Z79.82 Long term (current) use of aspirin; Z79.899 Other long term (current) drug therapy; Z96.642 Presence of left artificial hip joint; Z79.01 Long term (current) use of anticoagulants; Z87.891 Personal history of nicotine dependence
CPT/HCPCS: 36415; 73502; 80048; 85025; 93005; 93971; 94640; 96374; 96376; 97110; 97116; 97162; 97165; 97530; 99285; G0378; J2765

== ENCOUNTER 2020-08-21 13:17 | Day surgery (SDC) | payer MEDICARE, MEDICAID ==
[~2020-08-21] VITALS: Ht 162.6 cm; Wt 79.0 kg
[~2020-08-21 13:17] MED LIST changes: +ACET-1600 PO; +GABA-826 PO; +METH-639 PO; +OXYC5TAB98 PO; +SENN-211 PO
[2020-08-21] MEDS ORDERED: CHLORHEXIDINE 15 ML UDC ONE (14:21)
[2020-08-21] MEDS ORDERED: CHLORHEXIDINE 15 ML UDC PO ONE (14:30)
[2020-08-21] MEDS ORDERED: LACTATED RINGERS 1,000 ML IV SCH (14:30)
[2020-08-21] MEDS ORDERED: ASPI81TA45 PO (14:39)
[2020-08-21 14:40] VITALS: BP 116/74
[2020-08-21] MEDS ORDERED: ROCURONIUM 10MG/ML,5ML ONE (16:25)
[2020-08-21] MEDS ORDERED: NEOSTIGMINE 1 MG/ML, 10ML ONE (16:25)
[2020-08-21] MEDS ORDERED: DEXAMETHASONE 4 MG/ML, 1ML ONE (16:25)
[2020-08-21] MEDS ORDERED: SUCCINYLCHOLINE 20 MG/ML, 10ML ONE (16:25)
[2020-08-21] MEDS ORDERED: PROPOFOL 10 MG/ML, 20ML ONE (16:25)
[2020-08-21] MEDS ORDERED: GLYCOPYRROLATE 0.2MG/1ML, 5ML ONE (16:25)
[2020-08-21] MEDS ORDERED: CEFAZOLIN 1,000 MG ONE (16:25)
[2020-08-21] MEDS ORDERED: FENTANYL PF 100 MCG/2ML ONE (16:25)
[2020-08-21] MEDS ORDERED: ONDANSETRON 2MG/ML, 2ML ONE (16:25)
[2020-08-21] MEDS ORDERED: PROMETHAZINE 25 MG/ML, 1ML IVPush PRN (16:30)
[2020-08-21] MEDS ORDERED: FENTANYL PF 100 MCG/2ML IV PRN (16:30)
[2020-08-21] MEDS ORDERED: HYDROmorphone 1 MG/ML, 1ML INJ IVPush PRN (16:30)
[2020-08-21] MEDS ORDERED: ACETAMINOPHEN 325 MG TABLET PO PRN ×2 (16:30→18:00)
[2020-08-21] MEDS ORDERED: MEPERIDINE/PF 25MG/0.5ML IVPush PRN (16:30)
[2020-08-21] MEDS ORDERED: OXYcodone 5 MG/5 ML ORAL.SOL UDC PO PRN (16:30)
[2020-08-21] MEDS ORDERED: HYDROcodone/APAP 7.5-325MG/15ML UDC PO PRN (16:30)
[2020-08-21] MEDS ORDERED: ONDANSETRON 2MG/ML, 2ML IVPush PRN ×2 (16:30→18:00)
[2020-08-21] MEDS ORDERED: PHENYLEPHRINE 10 MG/ML ONE (16:56)
[2020-08-21] MEDS ORDERED: OXYcodone/APAP 5/325MG TABLET PO PRN (18:00)
[2020-08-21] MEDS ORDERED: HYDROmorphone 1 MG/ML, 1ML INJ IM PRN (18:00)
[2020-08-21] MEDS ORDERED: PROMETHAZINE 25 MG/ML, 1ML IM PRN (18:00)
[2020-08-21] MEDS ORDERED: ACETAMINOPHEN 650 MG/20.3 ML UDC ONE (18:08)
== END 2020-08-21 19:40 | disposition home or self-care (01) ==
LOC: OUT 13:17
PROVIDERS: ATTEND Orthopaedic Surgery
DX: I96 Gangrene, not elsewhere classified (principal); I48.91 Unspecified atrial fibrillation; I50.9 Heart failure, unspecified; G47.33 Obstructive sleep apnea (adult) (pediatric); Z20.822 Contact with and (suspected) exposure to COVID-19; Z88.8 Allergy status to other drugs, medicaments and biological substances; Z96.642 Presence of left artificial hip joint
CPT/HCPCS: 13160; 87635; J0330; J0690; J1100; J2370; J2405; J2704; J2710; J3010

== ENCOUNTER 2021-02-13 14:37 | Inpatient (IN) | payer MEDICARE, MEDICAID ==
[~2021-02-13] VITALS: Ht 162.6 cm; Wt 72.8 kg
[~2021-02-13 14:37] MED LIST changes: -OMEP40CA42 PO; +OMEP40CA8 PO
--- NOTE | 2021-02-13 15:26 | NUR ---
PATIENT REPORTING NAUSEA, PATIENT HR WENT FROM 60S TO 130-140, 2ND EKG COMPLETED, PATIENT IN AFIB WITH RVR, NOTIFED. PATIENT HYPOTENSIVE, 1L OF NS STARTED. Addendum: 02/13/21 at 1527 by [email or web address] PATIENT PLACED ON TOLL WITH MD AT BEDSIDE.
[2021-02-13] MEDS ORDERED: DILTIAZEM 5 MG/ML, 5ML IV ONE (15:30)
[2021-02-13] MEDS ORDERED: SODIUM CHLORIDE FLUSH 10ML SYR IVF ONE (15:30)
[2021-02-13] MEDS ORDERED: SODIUM CHLORIDE 0.9% 1,000ML IVBOLUS ONE (15:30)
[2021-02-13] MEDS ORDERED: DILTIAZEM 5 MG/ML, 5ML ONE (15:31)
--- NOTE | 2021-02-13 15:47 | NUR ---
PROVIDED MEDS PER MAR, PATIENT HR 95-108, MD AWARE.
--- NOTE | 2021-02-13 15:48 | NUR ---
FAMILY NOTIFED AND UPDATED ABOUT PLAN OF CARE IN THE ER.
[2021-02-13 16:02] LABS: BASOPHILS % (AUTO) 1 % (0-1); EOSINOPHILS % (AUTO) 0 % (1-7); LYMPHOCYTES % (AUTO) 10 % (22-44); MEAN CORPUSCULAR HEMOGLOBIN 31.9 pg (27.0-34.8); MEAN CORPUSCULAR HGB CONC 32.7 g/dL (32.4-35.8); MEAN PLATELET VOLUME 8.1 fL (7.4-10.4); MONOCYTES % (AUTO) 10 % (2-9); NEUTROPHILS % (AUTO) 80 % (42-75); PLATELET COUNT 259 x10^3/uL (130-400); RED BLOOD COUNT 4.25 x10^6/uL (3.82-5.3); RED CELL DISTRIBUTION WIDTH 13.8 % (9.6-15.2)
[2021-02-13 16:11] LABS: ALBUMIN 3.3 g/dL (3.4-5.0); ANION GAP 5 mmol/L (5-15); CALCIUM 8.6 mg/dL (8.5-10.1); CHLORIDE 107 mmol/L (98-107); CREATININE 0.94 mg/dL (0.55-1.02)
--- NOTE | 2021-02-13 16:11 | NUR ---
PATIENT HAS FAMILY AT BEDSIDE.
[2021-02-13 16:15] LABS: TROPONIN I < 0.015 ng/mL (0.000-0.045)
--- NOTE | 2021-02-13 16:20 | NUR ---
FAMILY UPDATED ABOUT PLAN OF CARE, RACHELLE PROVIDED WARM BLANKET.
[2021-02-13] MEDS: DILTIAZEM 125 MG in SODIUM CHLORIDE 0.9% 100 ML IV SCH ×2 (16:28→16:45)
--- NOTE | 2021-02-13 16:29 | NUR ---
Per MD due to heart rate of 95-110 change diltiazm drip to 5ml/hour.
--- NOTE | 2021-02-13 16:44 | NUR ---
MD AT BEDSIDE RACHELLE HEART RATE IS UP TO 120S, TITRATED DILTAZM TO 10ML/HOUR PER MD.
--- NOTE | 2021-02-13 16:55 | NUR ---
PATIENT REPOSITIONED IN THE BED, PATIENT DRY-MD NA NOTIFIED, VERBAL ORDER FOR 4MG ZOFRAN IV.
[2021-02-13] MEDS ORDERED: ONDANSETRON 2MG/ML, 2ML ONE ×2 (16:59→18:32)
--- NOTE | 2021-02-13 17:35 | NUR ---
PATIENT DECLINING NAUSEA AT THIS TIME, WILL HOLD VERBAL ZOFRAN ORDER AT THIS TIME, PATIENT HEART RATE NOW 60S-70S, WILL INFORM MD.
--- NOTE | 2021-02-13 17:39 | NUR ---
VERBAL ORDER TO STOP DILTAZM DUE TO HEART RATE AND BLOOD PRESSURE.
[2021-02-13] MEDS ORDERED: AMIODARONE 150 MG in DEXTROSE 5% 100 ML IV ONE (18:00)
--- NOTE | 2021-02-13 18:35 | NUR ---
TASK RN. PT REQUESTING BEDPAN AND IS VOMITING. MD AWARE, ORDER PLACED FOR ZOFRAN. ZOFRAN GIVEN.
[2021-02-13] MEDS ORDERED: ACETAMINOPHEN 325 MG TABLET PO PRN (19:00)
[2021-02-13] MEDS ORDERED: BISACODYL 10 MG SUPP PR PRN (19:00)
[2021-02-13] MEDS ORDERED: ONDANSETRON ODT 4 MG PO PRN (19:00)
[2021-02-13] MEDS ORDERED: POLYETHYLENE GLYCOL 17 GM PACKET PO PRN (19:00)
[2021-02-13] MEDS ORDERED: ONDANSETRON 2MG/ML, 2ML IVPush ONE (19:00)
--- NOTE | 2021-02-13 19:08 | NUR ---
ATTEMPT TO CALL REPORT, [facility] RN UNAVAILABLE, WILL ATTEMPT AGAIN N 10 MINS.
--- NOTE | 2021-02-13 19:30 | NUR ---
REPORT TO ITALIA, PATIENT AWAITING TRANSPORT TO [facility]
[2021-02-13 20:10] VITALS: BP 117/59
[2021-02-13] MEDS: METOPROLOL TARTRATE 25 MG TAB PO SCH (21:00)
[2021-02-13] MEDS: SODIUM CHLORIDE FLUSH 10ML SYR IVF SCH (21:00)
[2021-02-13] MEDS ORDERED: LOSARTAN 25MG TABLET PO SCH (21:00)
[2021-02-13] MEDS: FAMOTIDINE 20 MG TABLET PO SCH (21:34)
[2021-02-13] MEDS: APIXABAN 5 MG TABLET PO SCH (21:34)
[2021-02-13] MEDS: ATORVASTATIN 10 MG TABLET PO SCH (21:34)
[2021-02-13 23:15] LABS: TROPONIN I < 0.015 ng/mL (0.000-0.045)
[2021-02-14 00:09] VITALS: BP 115/61
[2021-02-14 04:58] LABS: BASOPHILS % (AUTO) 1 % (0-1); EOSINOPHILS % (AUTO) 0 % (1-7); LYMPHOCYTES % (AUTO) 12 % (22-44); MEAN CORPUSCULAR HEMOGLOBIN 32.6 pg (27.0-34.8); MEAN CORPUSCULAR HGB CONC 33.5 g/dL (32.4-35.8); MEAN PLATELET VOLUME 8.1 fL (7.4-10.4); MONOCYTES % (AUTO) 8 % (2-9); NEUTROPHILS % (AUTO) 79 % (42-75); PLATELET COUNT 251 x10^3/uL (130-400); RED BLOOD COUNT 3.99 x10^6/uL (3.82-5.3); RED CELL DISTRIBUTION WIDTH 13.8 % (9.6-15.2)
[2021-02-14 05:06] LABS: CHLORIDE 109 mmol/L (98-107)
[2021-02-14 05:17] LABS: ANION GAP 3 mmol/L (5-15); CALCIUM 8.7 mg/dL (8.5-10.1); CREATININE 0.68 mg/dL (0.55-1.02); TROPONIN I < 0.015 ng/mL (0.000-0.045)
[2021-02-14] MEDS: LEVOTHYROXINE 75 MCG TABLET PO SCH (05:22)
[2021-02-14] MEDS: CITALOPRAM 10 MG TABLET PO SCH (08:23)
[2021-02-14] MEDS: OMEGA-3/FISH OIL CAPSULE PO SCH (08:23)
[2021-02-14] MEDS: METOPROLOL TARTRATE 25 MG TAB PO SCH ×2 (08:24→20:29)
[2021-02-14] MEDS: FAMOTIDINE 20 MG TABLET PO SCH (08:24)
[2021-02-14] MEDS: FUROSEMIDE 20 MG TABLET PO SCH (08:24)
[2021-02-14] MEDS: APIXABAN 5 MG TABLET PO SCH ×2 (08:24→20:27)
[2021-02-14] MEDS: ASPIRIN 81 MG TABLET EC PO SCH (08:24)
[2021-02-14] MEDS: CHOLECALCIFEROL 1,000 UNIT TABLET PO SCH (08:24)
[2021-02-14] MEDS: AMIODARONE 200 MG TABLET PO SCH (08:24)
[2021-02-14] MEDS: SENNA/DOCUSATE TABLET PO SCH (08:25)
[2021-02-14 08:28] VITALS: BP 111/49
[2021-02-14] MEDS ORDERED: SPIRONOLACTONE 25 MG TABLET PO SCH (09:00)
[2021-02-14] MEDS: SODIUM CHLORIDE FLUSH 10ML SYR IVF SCH ×2 (09:00→20:33)
[2021-02-14] MEDS ORDERED: POTASSIUM CHLORIDE 20 MEQ TAB.ER.PRT PO SCH (09:00)
[2021-02-14] MEDS: FLUTICASONE/VILANTEROL 100-25MCG/INH INH SCH (10:17)
[2021-02-14 13:41] VITALS: BP 98/59
[2021-02-14] MEDS ORDERED: OMNIPAQUE 350 MG/ML, 75ML BOTTLE ONE (15:28)
[2021-02-14 16:39] LABS: MICROSCOPIC INDICATED
[2021-02-14] MEDS ORDERED: CEFTRIAXONE 1,000 MG in DEXTROSE 5% 50 ML IVPB SCH (18:00)
[2021-02-14 18:29] VITALS: BP 133/74
[2021-02-14] MEDS: ATORVASTATIN 10 MG TABLET PO SCH (20:27)
[2021-02-14] MEDS ORDERED: FAMOTIDINE 20 MG TABLET PO SCH (21:00)
[2021-02-15 01:13] VITALS: BP 112/70
[2021-02-15 05:18] LABS: BASOPHILS % (AUTO) 1 % (0-1); EOSINOPHILS % (AUTO) 1 % (1-7); LYMPHOCYTES % (AUTO) 14 % (22-44); MEAN CORPUSCULAR HEMOGLOBIN 33.2 pg (27.0-34.8); MEAN PLATELET VOLUME 8.5 fL (7.4-10.4); MONOCYTES % (AUTO) 9 % (2-9); NEUTROPHILS % (AUTO) 76 % (42-75); PLATELET COUNT 232 x10^3/uL (130-400); RED BLOOD COUNT 4.17 x10^6/uL (3.82-5.3); RED CELL DISTRIBUTION WIDTH 13.7 % (9.6-15.2)
[2021-02-15 05:39] LABS: CHLORIDE 109 mmol/L (98-107)
[2021-02-15 05:47] LABS: ALANINE AMINOTRANSFERASE 15 U/L (12-78); ALBUMIN 2.8 g/dL (3.4-5.0); ALKALINE PHOSPHATASE 60 U/L (45-117); ANION GAP 4 mmol/L (5-15); BILIRUBIN,TOTAL 0.5 mg/dL (0.2-1.0); CALCIUM 8.3 mg/dL (8.5-10.1); CREATININE 0.69 mg/dL (0.55-1.02); TOTAL PROTEIN 5.8 g/dL (6.4-8.2)
[2021-02-15] MEDS: LEVOTHYROXINE 75 MCG TABLET PO SCH (06:30)
[2021-02-15] MEDS: ASPIRIN 81 MG TABLET EC PO SCH (08:48)
[2021-02-15] MEDS: CHOLECALCIFEROL 1,000 UNIT TABLET PO SCH (08:48)
[2021-02-15] MEDS: OMEGA-3/FISH OIL CAPSULE PO SCH (08:48)
[2021-02-15] MEDS: FUROSEMIDE 20 MG TABLET PO SCH (08:48)
[2021-02-15] MEDS: FLUTICASONE/VILANTEROL 100-25MCG/INH INH SCH (08:48)
[2021-02-15] MEDS: AMIODARONE 200 MG TABLET PO SCH (08:49)
[2021-02-15] MEDS: METOPROLOL TARTRATE 25 MG TAB PO SCH (08:49)
[2021-02-15] MEDS: SODIUM CHLORIDE FLUSH 10ML SYR IVF SCH (08:49)
[2021-02-15] MEDS: CITALOPRAM 10 MG TABLET PO SCH (08:49)
[2021-02-15] MEDS: APIXABAN 5 MG TABLET PO SCH (08:49)
[2021-02-15] MEDS: SENNA/DOCUSATE TABLET PO SCH (08:50)
[2021-02-15 09:47] VITALS: BP 113/66
[2021-02-15] MEDS ORDERED: METO25TA35 PO (11:38)
[2021-02-15] MEDS ORDERED: CEFD300C37 PO (11:45)
[2021-02-15 12:59] VITALS: BP 119/69
== END 2021-02-15 14:19 | disposition home or self-care (01) | DRG 309 ==
LOC: ED 17:51 → EDIP 18:00 → 5SO 19:58
PROVIDERS: ADMIT Family Medicine; ATTEND Family Medicine
DX: I48.0 Paroxysmal atrial fibrillation (principal); D68.69 Other thrombophilia; N39.0 Urinary tract infection, site not specified; E03.9 Hypothyroidism, unspecified; E78.5 Hyperlipidemia, unspecified; G47.33 Obstructive sleep apnea (adult) (pediatric); I11.0 Hypertensive heart disease with heart failure; I25.10 Atherosclerotic heart disease of native coronary artery without angina pectoris; I45.10 Unspecified right bundle-branch block; J44.9 Chronic obstructive pulmonary disease, unspecified; Z80.8 Family history of malignant neoplasm of other organs or systems; Z82.49 Family history of ischemic heart disease and other diseases of the circulatory system; Z87.891 Personal history of nicotine dependence; Z95.5 Presence of coronary angioplasty implant and graft; Z90.89 Acquired absence of other organs; Z91.048 Other nonmedicinal substance allergy status
CPT/HCPCS: 36415; 71045; 71275; 80048; 80053; 81001; 82040; 82962; 84443; 84484; 85025; 87077; 87086; 87186; 93005; 96361; 96365; 96375; 99291; G0378; J0696; J2405; Q0162; Q9967; J7030